=== PATIENT | male | born 1950 | race Caucasian/White ===

== ENCOUNTER 2021-03-24 19:51 | Emergency (ER) | payer MEDICARE, BC ==
[~2021-03-24] VITALS: Ht 185.4 cm; Wt 79.4 kg
[2021-03-24 20:04] VITALS: BP 131/69
[2021-03-24] MEDS ORDERED: LIDOCAINE 2% 20 ML MDV TP ONE (20:30)
[2021-03-24] MEDS ORDERED: CEPH500C2 PO (20:43)
== END 2021-03-24 21:00 | disposition home or self-care (01) ==
LOC: ER 19:55
DX: S61.012A Laceration without foreign body of left thumb without damage to nail, initial encounter (principal); Z88.0 Allergy status to penicillin; Z79.899 Other long term (current) drug therapy; W26.8XXA Contact with other sharp object(s), not elsewhere classified, initial encounter; Y93.89 Activity, other specified; Y92.89 Other specified places as the place of occurrence of the external cause; Y99.8 Other external cause status
CPT/HCPCS: 12001; 99283; A6403

== ENCOUNTER 2021-04-04 12:06 | Emergency (ER) | payer MEDICARE, BC ==
[~2021-04-04] VITALS: Ht 185.4 cm; Wt 72.6 kg
[~2021-04-04 12:06] MED LIST: CEPH500C2 PO
[2021-04-04 12:09] VITALS: BP 132/81
== END 2021-04-04 13:08 | disposition home or self-care (01) ==
LOC: ER 12:07
DX: S61.012D Laceration without foreign body of left thumb without damage to nail, subsequent encounter (principal); Z88.0 Allergy status to penicillin; X58.XXXD Exposure to other specified factors, subsequent encounter